=== PATIENT | male | born 1945 | race Caucasian/White ===

== ENCOUNTER 2023-06-23 08:15 | Emergency (ER) | payer MEDICARE, OTHER ==
[~2023-06-23] VITALS: Ht 170.2 cm; Wt 77.1 kg
[2023-06-23 09:48] LABS: APPEARANCE,URINE CLEAR (CLEAR); BILIRUBIN,URINE NEGATIVE (NEGATIVE); BLOOD, URINE NEGATIVE Ery/uL (NEGATIVE); COLOR,URINE YELLOW (YELLOW); KETONES,URINE NEGATIVE (NEGATIVE); LEUKOCYTE ESTERASE ,URINE NEGATIVE (NEGATIVE); NITRITE, URINE NEGATIVE (NEGATIVE); PROTEIN,URINE NEGATIVE (NEGATIVE); UGLUCOSE NEGATIVE (NEGATIVE); UROBILINOGEN,URINE 0.2 EU/dL (0.2)
[2023-06-23 10:31] VITALS: BP 131/66; TEMP 98.2; O2SAT 98
== END 2023-06-23 10:31 | disposition home or self-care (01) ==
LOC: ER 08:15
DX: R33.9 Retention of urine, unspecified (principal); R10.2 Pelvic and perineal pain; Z88.5 Allergy status to narcotic agent

== ENCOUNTER 2023-06-30 02:40 | Emergency (ER) | payer MEDICARE, OTHER ==
[~2023-06-30] VITALS: Ht 175.3 cm; Wt 77.1 kg
[2023-06-30 03:55] VITALS: BP 153/73; TEMP 98.4; O2SAT 99
== END 2023-06-30 04:14 | disposition home or self-care (01) ==
LOC: ER 02:45
DX: Z46.6 Encounter for fitting and adjustment of urinary device (principal); R33.9 Retention of urine, unspecified; G20.A1 Parkinson's disease without dyskinesia, without mention of fluctuations

== ENCOUNTER 2023-07-05 17:08 | Emergency (ER) | payer MEDICARE ==
[~2023-07-05] VITALS: Ht 175.3 cm; Wt 77.1 kg
[2023-07-05 18:45] VITALS: BP 171/86; TEMP 98.3; O2SAT 99
== END 2023-07-05 21:07 | disposition left against medical advice (07) ==
LOC: ER 17:13
DX: T83.031A Leakage of indwelling urethral catheter, initial encounter (principal); Z53.21 Procedure and treatment not carried out due to patient leaving prior to being seen by health care provider